=== PATIENT | male | born 1935 | race Caucasian/White ===

== ENCOUNTER 2016-09-20 23:52 | Inpatient (IN) | payer MEDICARE ==
[~2016-09-20] VITALS: Ht 180.3 cm; Wt 95.8 kg
[~2016-09-20 23:52] MED LIST: ASPIRIN325 MG PO; CARDURA1 MG PO; FLOMAX0.4 M1 PO; LIPITOR10 MG PO; MAXIDE1 COMBO PO; PRILOSEC40 MG PO; PROAIR HFA IN; PYRIDIUM200 MG PO; SAW PALMETTO160 MG PO; ULTRAM50 M1 PO
--- NOTE | 2016-09-20 23:54 | NUR ---
AMBULATED TO ROOM 9 WITH STEADY GAIT
[2016-09-21] VITALS (9 sets, daily range): BP systolic 121–155; BP diastolic 55–76
[2016-09-21] MEDS ORDERED: LISINOPRIL10 MG PO (00:07)
--- NOTE | 2016-09-21 00:13 | NUR ---
IVF, IV ANTIEMETIC AND IV PAIN MED GIVEN PER MD ORDER.
[2016-09-21 00:41] LABS: HEMATOCRIT 45.2 % (39.0-50.0); HEMOGLOBIN 15.5 g/dl (14.0-18.0); IMMATURE GRANULOCYTES 0.4 % (0.0-1.0); MEAN CELL VOLUME 89.3 fL CALC (80.0-100.0); MEAN CORPUSCULAR HGB 30.6 pG CALC (26.0-32.0); MEAN CORPUSCULAR HGB CONC 34.3 g/L CALC (32.0-36.0); NEUT# 8.24 thou/uL (1.82-7.42); RED BLOOD COUNT 5.06 mill/uL (4.70-6.10); RED CELL DISTRI WIDTH 13.1 % (11.5-15.5)
[2016-09-21 01:00] LABS: ALBUMIN 5.1 g/dL (3.2-5.0); ALKALINE PHOSPHATASE 63 u/l (38-126); AMYLASE 97 u/l (30-110); ANION GAP 17 (6-22 (CALC)); BILIRUBIN, TOTAL 0.5 mg/dL (0.0-1.4); BUN 25 mg/dL (8-23); BUN/CREATININE RATIO 20 (12-20 (CALC)); CALCIUM 10.2 mg/dL (8.4-10.2); CARBON DIOXIDE 30 mmol/l (22-30); CHLORIDE 98 mmol/l (95-108); CREATININE 1.3 mg/dL (0.7-1.3); GFR 53 ML/MIN (>=60 (CALC)); GFR FOR AFR.AMER. > 60 ML/MIN (>=60 (CALC)); GLUCOSE 127 mg/dL (82-115); LIPASE 248 u/l (23-300); POTASSIUM 4.5 mmol/l (3.5-5.1); SGOT/AST 55 u/l (19-48); SGPT/ALT 67 u/l (11-66); SODIUM 141 mmol/l (137-146); TOTAL PROTEIN 8.8 g/dL (6.3-8.2)
[2016-09-21 01:11] LABS: MYOGLOBIN 89 ng/mL (0 - 121)
--- NOTE | 2016-09-21 01:12 | NUR ---
PATIENT MEDICATED ADDITIONALLY FOR PAIN. ABX HUNG. PATIENT GIVEN WARM BLANKETS.
--- NOTE | 2016-09-21 01:40 | NUR ---
PT. STATES HIS ABD. PAIN IS NOW DECREASED TO A 2 ON A SCALE OF 1-10.
--- NOTE | 2016-09-21 02:44 | NUR ---
PT. RETURNED FROM X-RAY, NO C/O PAIN OR DISCOMFORT OFFERED.
--- NOTE | 2016-09-21 03:32 | NUR ---
IN ROOM TO DISCUSS CLINICAL FINDINGS WITH PT. AND , VERBALIZED UNDERSTANDING.
--- NOTE | 2016-09-21 03:47 | NUR ---
Admission Note Report Given to: CARMEN PEARSON Transported by: Wheelchair X Stretcher Transported with: X Nurse Transporter X Patent IV O2 Client Specialist
--- NOTE | 2016-09-21 03:50 | NUR ---
[place] [facility] [place], NO C/O PAIN OR DISCOMFORT OFFERED, V/S STABLE. IVF INFUSING WELL.
--- NOTE | 2016-09-21 04:00 | NUR ---
PT ARRIVED TO UNIT VIA STRETCHER WITH ER STAFF. AMBULATED TO BED WITH SUPERVISION. DENIES PAIN AT THIS TIME; STATES ANALGESICS GIVEN IN ED WERE EFFECTIVE. AT BEDSIDE. ASSESSMENT COMPLETED. PLAN OF CARE DISCUSSED. PT AND FAMILY ENCOURAGED TO VERBALIZE CONCERNS. STATES UNDERSTANDING. SAFETY MEASURES PUT IN PLACE. CALL LIGHT SYSTEM REVIEWED AND IN REACH.
--- NOTE | 2016-09-21 07:00 | NUR ---
SHIFT CHANGE REPORT FROM CARMEN, PT AWAKE ALERT AND ORIENTED LYING SUPINE IN BED, DENIES PAIN AT THIS TIME, IVF INFUSING, CALL REYES IN REACH, SPOUSE AT BEDSIDE.
--- NOTE | 2016-09-21 12:22 | NUR ---
OR STAFF HERE TO RECEIVE PT AT THIS TIME, SPOUSE AT BEDSIDE AND ACCOMPANING OR STAFF OFF UNIT.
--- NOTE | 2016-09-21 17:58 | NUR ---
PT ARRIVED ON UNIT VIA STRETCHER AND TRANSFERRED TO BED, REPORT RECEIVED FROM WENDIE IN PACU, INCISION X 4 TO ABD WITH TYSHAWN DRAIN IN PLACE WITH BLOODY DRAINAGE, ABD TENDER AND PT C/O SORE PAIN @ 8/10 AT THIS TIME, O2 @ 2L APPLIED, SCD IN PLACE AND VITAL SIGNS BEING MEASURED. SPOUSE AT BEDSIDE, WILL CONTINUE TO MONITOR AND ADDRESS NEEDS.
--- NOTE | 2016-09-21 20:03 | NUR ---
BEDSIDE REPORT RECEIVED FROM JASON SORIA. PT RESTING IN BED WITH AT BEDSIDE. C/O MODERATE ABDOMINAL PAIN. PILLOW GIVEN FOR SPLINTING AND IS AT BEDSIDE. RESPIRATIONS EVEN AND UNLABORED. PLAN OF CARE REVIEWED. ENCOURAGED TO VERBALIZE CONCERNS. STATES UNDERSTANDING. SAFETY MEASURES IN PLACE. CALL LIGHT WITHIN REACH.
--- NOTE | 2016-09-22 00:12 | NUR ---
PT UP TO BATHROOM AT THIS TIME. MILD PAIN TO ABDOMEN; STATES THAT MORPHINE WAS EFFECTIVE FOR PAIN. RESPIRATIONS EVEN AND UNLABORED. AMBULATED TO BATHROOM INDEPENDENTLY WITH SUPERVISION. REMAINS AT BEDSIDE. SCD'S IN PLACE. INSTRUCTED TO NOTIFY NURSE FOR ANY CHANGES IN CONDITION. USING INCENTIVE SPIROMETER WHILE AWAKE. CALL LIGHT WITHIN REACH.
--- NOTE | 2016-09-22 04:11 | NUR ---
PT ASLEEP AT THIS TIME. NO SIGNS OF DISTRESS NOTED. RESPIRATIONS EVEN AND UNLABORED WITH OXYGEN IN PLACE. NO CHANGES IN ASSESSMENT NOTED. AT BEDSIDE. SAFETY MEASURES IN PLACE. CALL LIGHT WITHIN REACH.
[2016-09-22 04:30] VITALS: BP 151/64
--- NOTE | 2016-09-22 04:35 | NUR ---
PT UP TO VOID. DRESSING TO INCISION CONTAINING TYSHAWN DRAIN NOTED TO BE SATURATED WITH BLOOD. SITE CLEANSED AND DRESSING REPLACED. NOW CDI.
--- NOTE | 2016-09-22 07:00 | NUR ---
REPORT RECIEVED FROM MICHEL MORALES; PT RESTING IN BED WITH EYES CLOSED; PT EASILY AROUSED; PT STATES PAIN IS A 3 OUT OF 10; DRESSINGS X5 TO ABD IN PLACE; DRESSING SURROUNDING TYSHAWN DRAIN HAS SEROSANGIUNIOUS DRAINAGE NOTED; TYSHAWN IN PLACE DRAINING DARK BLOODY DRAINAGE; SPOUSE AT BEDSIDE; PT DENIES ANY NEEDS AT THIS TIME; PT ENCOURAGED TO CALL FOR ANY ASSISTANCE NEEDED; CALL LIGHT WITHIN REACH; WILL CONTINUE TO MONITOR
[2016-09-22 07:12] LABS: HEMATOCRIT 38.4 % (39.0-50.0); HEMOGLOBIN 12.9 g/dl (14.0-18.0); IMMATURE GRANULOCYTES 0.6 % (0.0-1.0); MEAN CELL VOLUME 92.1 fL CALC (80.0-100.0); MEAN CORPUSCULAR HGB 30.9 pG CALC (26.0-32.0); MEAN CORPUSCULAR HGB CONC 33.6 g/L CALC (32.0-36.0); NEUT# 14.58 thou/uL (1.82-7.42); RED BLOOD COUNT 4.17 mill/uL (4.70-6.10); RED CELL DISTRI WIDTH 13.5 % (11.5-15.5)
[2016-09-22 07:25] LABS: ANION GAP 15 (6-22 (CALC)); BUN 26 mg/dL (8-23); BUN/CREATININE RATIO 23 (12-20 (CALC)); CARBON DIOXIDE 28 mmol/l (22-30); CHLORIDE 102 mmol/l (95-108); CREATININE 1.2 mg/dL (0.7-1.3); GFR 58 ML/MIN (>=60 (CALC)); GFR FOR AFR.AMER. > 60 ML/MIN (>=60 (CALC)); GLUCOSE 102 mg/dL (82-115); SODIUM 140 mmol/l (137-146)
[2016-09-22 07:29] LABS: POTASSIUM 5.3 mmol/l (3.5-5.1)
[2016-09-22 08:14] VITALS: BP 157/58
--- NOTE | 2016-09-22 12:30 | NUR ---
PT AMB IN HALLS AT THIS TIME WITH STEADY GAIT WITH SPOUSE; PT ENCOURAGED TO CALL FOR ANY ASSISTANCE NEEDED; DRESSING TO RIGHT UPPER ABD CHANGED AND TYSHAWN EMPTIED 40ML OF DARK BLOODY DRAINAGE NOTED; PT DENIES ANY NEED FOR PAIN MEDICATIONS AT THIS TIME; CALL LIGHT WITHIN REACH; WILL CONTINUE TO MONITOR
[2016-09-22 15:31] VITALS: BP 116/50
--- NOTE | 2016-09-22 16:00 | NUR ---
PT RESTING IN BED WITH EYES CLOSED; NO S/S OF DISTRESS NOTED; SPOUSE AT BEDSIDE; DISCUSSED POC INCLUDING ANOTHER NIGHT STAY; PT VERBALIZES UNDERSTANDING AND ENCOURAGED TO AMB AND USE OF IS; CALL LIGHT WITHIN REACH; WILL CONTINUE TO MONITOR
--- NOTE | 2016-09-22 19:44 | NUR ---
OOB TO BATHROOM PROVINDING OWN PARTIAL BATH, AT PT'S SIDE. DENIES PAIN. ENCOURAGED TO USE CALL LIGHT FOR ASSISTANCE. WILL CONTINUE TO MONITOR.
[2016-09-22 20:51] VITALS: BP 159/74
--- NOTE | 2016-09-22 21:45 | NUR ---
MEDICATED WITH MORPHINE 2MG IV FOR C/O ABDOMINAL PAIN 07/09. ABDOMEN IS LARGE BS, ACTIVE. DENIES PASSING FLATUS. CALL LIGHT IN REACH.
--- NOTE | 2016-09-23 00:05 | NUR ---
IV TO LAC LEAKING, DC'D WITH CATH TIP INTACT, NEW IV #22 STARTED TO RW ON 2ND ATTEMPT TOLERATED WELL.
--- NOTE | 2016-09-23 04:00 | NUR ---
OOB TO BATHROOM WITH STEADY GAIT, VOIDING CLEAR YELLOW URINE, BACK TO BED. SCD'S TO BILAT LOWER EXTREMITIES. CALL LIGHT IN REACH.
[2016-09-23 04:53] VITALS: BP 152/73
[2016-09-23 05:54] LABS: HEMATOCRIT 37.5 % (39.0-50.0); HEMOGLOBIN 12.8 g/dl (14.0-18.0); IMMATURE GRANULOCYTES 0.5 % (0.0-1.0); MEAN CELL VOLUME 90.6 fL CALC (80.0-100.0); MEAN CORPUSCULAR HGB 30.9 pG CALC (26.0-32.0); MEAN CORPUSCULAR HGB CONC 34.1 g/L CALC (32.0-36.0); NEUT# 7.54 thou/uL (1.82-7.42); RED BLOOD COUNT 4.14 mill/uL (4.70-6.10); RED CELL DISTRI WIDTH 13.2 % (11.5-15.5)
[2016-09-23 06:10] LABS: ANION GAP 13 (6-22 (CALC)); BUN 22 mg/dL (8-23); BUN/CREATININE RATIO 22 (12-20 (CALC)); CALCIUM 8.9 mg/dL (8.4-10.2); CARBON DIOXIDE 26 mmol/l (22-30); CHLORIDE 102 mmol/l (95-108); GFR > 60 ML/MIN (>=60 (CALC)); GFR FOR AFR.AMER. > 60 ML/MIN (>=60 (CALC)); GLUCOSE 87 mg/dL (82-115); POTASSIUM 4.4 mmol/l (3.5-5.1); SODIUM 137 mmol/l (137-146)
--- NOTE | 2016-09-23 07:00 | NUR ---
REPORT RECIEVED FROM MICHEL ARMIJO; PT SITTING UP IN BED; NO S/S OF DISTRESS NOTED; SPOUSE AT BEDSIDE; PT REPORTS IMPROVED PAIN AND PASSING GAS; PT DENIES ANY NEEDS AT THIS TIME; CALL LIGHT WITHIN REACH; WILL CONTINUE TO MONITOR
[2016-09-23 07:51] VITALS: BP 142/78
--- NOTE | 2016-09-23 12:28 | NUR ---
PT SITTING UP IN BED FOR LUNCH; NO S/S OF DISTRESS NOTED; SPOUSE AT BEDSIDE; TYSHAWN DRAIN EMPTIED AT THIS TIME; 30ML OF SEROSANGIUNOS DRAINAGE NOTED; PT DENIES ANY NEED FOR PAIN MEDICATION AT THIS TIME; CALL LIGHT WITHIN REACH; WILL CONTINUE TO MONITOR
[2016-09-23] MEDS ORDERED: CIPROFLOXACN500 MG PO (13:47)
[2016-09-23] MEDS ORDERED: METRONIDAZOL500 MG PO (13:48)
[2016-09-23] MEDS ORDERED: MIRALAX3350 NF PO (13:48)
[2016-09-23] MEDS ORDERED: LORTAB 5-325 MG1 TAB PO (13:48)
--- NOTE | 2016-09-23 14:41 | NUR ---
Discharge instructions given. Patient verbalizes understanding of same. Discharged in stable condition via Wheelchair to Home with family. All belongings sent with pt.
== END 2016-09-23 14:40 | disposition home or self-care (01) | DRG 419 ==
LOC: ENPENDDIS → ED 23:52 → ED-I 09-21 03:23 → ED 09-21 03:39 → MS2 09-21 03:40
PROVIDERS: Emergency Medicine; Internal Medicine; ADMIT Internal Medicine; ATTEND Internal Medicine
PROC: 0FT44ZZ Resection of Gallbladder, Percutaneous Endoscopic Approach (ICD-10-PCS; principal; 2016-09-21)
PROC: BF101ZZ Fluoroscopy of Bile Ducts using Low Osmolar Contrast (ICD-10-PCS; 2016-09-21)
DX: K80.00 Calculus of gallbladder with acute cholecystitis without obstruction (principal); E87.5 Hyperkalemia; I10 Essential (primary) hypertension; I25.10 Atherosclerotic heart disease of native coronary artery without angina pectoris; E04.9 Nontoxic goiter, unspecified; K21.9 Gastro-esophageal reflux disease without esophagitis; N40.0 Benign prostatic hyperplasia without lower urinary tract symptoms; Z87.891 Personal history of nicotine dependence
CPT/HCPCS: J2710; Q9967

== ENCOUNTER 2017-02-18 14:49 | Emergency (ER) | payer MEDICARE ==
[~2017-02-18] VITALS: Ht 180.3 cm; Wt 96.0 kg
[~2017-02-18 14:49] MED LIST changes: +CIPROFLOXACN500 MG PO; +LISINOPRIL10 MG PO; +LORTAB 5-325 MG1 TAB PO; +METRONIDAZOL500 MG PO; +MIRALAX3350 NF PO
[2017-02-18] MEDS ORDERED: TRAMADOL HYDROC50 MG PO (15:40)
[2017-02-18] MEDS ORDERED: EC-NAPROSYN500 MG PO (15:40)
[2017-02-18 15:55] VITALS: BP 149/74
== END 2017-02-18 15:55 | disposition home or self-care (01) ==
LOC: ED 14:49
DX: S89.92XA Unspecified injury of left lower leg, initial encounter (principal); I25.10 Atherosclerotic heart disease of native coronary artery without angina pectoris; I10 Essential (primary) hypertension; K21.9 Gastro-esophageal reflux disease without esophagitis; E04.9 Nontoxic goiter, unspecified; W18.39XA Other fall on same level, initial encounter; Y93.K1 Activity, walking an animal

== ENCOUNTER 2017-09-02 06:55 | Emergency (ER) | payer MEDICARE ==
[~2017-09-02] VITALS: Ht 180.3 cm; Wt 95.0 kg
[~2017-09-02 06:55] MED LIST changes: +EC-NAPROSYN500 MG PO; +TRAMADOL HYDROC50 MG PO
[2017-09-02 07:30] LABS: HEMATOCRIT 41.8 % (39.0-50.0); HEMOGLOBIN 14.1 g/dl (14.0-18.0); IMMATURE GRANULOCYTES 0.3 % (0.0-1.0); MEAN CELL VOLUME 90.9 fL CALC (80.0-100.0); MEAN CORPUSCULAR HGB 30.7 pG CALC (26.0-32.0); MEAN CORPUSCULAR HGB CONC 33.7 g/L CALC (32.0-36.0); NEUT# 2.66 thou/uL (1.82-7.42); RED BLOOD COUNT 4.6 mill/uL (4.70-6.10); RED CELL DISTRI WIDTH 13.2 % (11.5-15.5)
[2017-09-02 07:58] LABS: ALBUMIN 4.2 g/dL (3.2-5.0); ALKALINE PHOSPHATASE 70 u/l (38-126); ANION GAP 19 (6-22 (CALC)); BILIRUBIN, TOTAL 0.6 mg/dL (0.0-1.4); BUN 28 mg/dL (8-23); BUN/CREATININE RATIO 24 (12-20 (CALC)); CARBON DIOXIDE 26 mmol/l (22-30); CHLORIDE 103 mmol/l (95-108); CREATININE 1.2 mg/dL (0.7-1.3); GFR 58 ML/MIN (>=60 (CALC)); GFR FOR AFR.AMER. > 60 ML/MIN (>=60 (CALC)); POTASSIUM 4.2 mmol/l (3.5-5.1); SGOT/AST 86 u/l (19-48); SGPT/ALT 95 u/l (11-66); SODIUM 144 mmol/l (137-146)
[2017-09-02 08:50] VITALS: BP 120/67
== END 2017-09-02 09:00 | disposition home or self-care (01) ==
LOC: ED 06:55
PROVIDERS: Emergency Medicine
DX: I10 Essential (primary) hypertension (principal)

== ENCOUNTER 2017-09-25 17:19 | Emergency (ER) | payer MEDICARE | END 2017-09-25 17:59 | disposition left against medical advice (07) | LOC: ED 17:19 → LWOBS 17:58 | DX: Z91.19 Patient's noncompliance with other medical treatment and regimen (principal) ==

== ENCOUNTER → 2018-01-02 | Outpatient (REF) | payer MEDICARE | END | disposition home or self-care (01) | LOC: RT 08:34 | PROVIDERS: ATTEND Internal Medicine | DX: R06.2 Wheezing (principal) ==

== ENCOUNTER 2020-04-12 06:30 | Emergency (ER) | payer MEDICARE ==
[~2020-04-12] VITALS: Ht 180.3 cm; Wt 100.0 kg
[2020-04-12 07:54] LABS: HEMATOCRIT 39.1 % (39.0-50.0); HEMOGLOBIN 13.5 g/dl (14.0-18.0); IMMATURE GRANULOCYTES 0.2 % (0.0-5.0); MEAN CELL VOLUME 87.7 fL CALC (80.0-100.0); MEAN CORPUSCULAR HGB 30.3 pG CALC (26.0-32.0); MEAN CORPUSCULAR HGB CONC 34.5 g/dL CAL (32.0-36.0); NEUT# 4.88 thou/uL (1.82-7.42); RED BLOOD COUNT 4.46 mill/uL (4.70-6.10); RED CELL DISTRI WIDTH 12.8 % (11.5-15.5)
[2020-04-12 08:23] LABS: ALBUMIN 4.3 g/dL (3.2-5.0); ALKALINE PHOSPHATASE 61 u/l (38-126); BUN 27 mg/dL (8-23); BUN/CREATININE RATIO 21 (12-20 (CALC)); CARBON DIOXIDE 25 mmol/l (22-30); CHLORIDE 96 mmol/l (95-108); CREATININE 1.3 mg/dL (0.7-1.3); GFR 52 ML/MIN (>=60 (CALC)); GFR FOR AFR.AMER. > 60 ML/MIN (>=60 (CALC)); POTASSIUM 4.4 mmol/l (3.5-5.1); SGOT/AST 44 u/l (19-48); TOTAL PROTEIN 7.3 g/dL (6.3-8.2)
[2020-04-12 08:27] LABS: ANION GAP 12 (6-22 (CALC)); BILIRUBIN, TOTAL 0.8 mg/dL (0.0-1.4); SODIUM 129 mmol/l (137-146)
[2020-04-12] MEDS ORDERED: [UNRECOGNIZED DRUG - OTHER] (08:59)
[2020-04-12] MEDS ORDERED: METOPROL TAR25 MG PO (09:00)
[2020-04-12] MEDS ORDERED: PRILOSEC20 MG/CAP PO (09:00)
[2020-04-12] MEDS ORDERED: MAXZIDE-2537.5 MG/TA PO (09:01)
[2020-04-12 10:01] LABS: URINE BILIRUBIN - DIPSTICK NEGATIVE (NEGATIVE); URINE BLOOD DIPSTICK NEGATIVE (NEGATIVE); URINE COLOR YELLOW; URINE GLUCOSE - DIPSTICK NEGATIVE (NEGATIVE); URINE KETONE NEGATIVE (NEGATIVE); URINE LEUK ESTERASE NEGATIVE (NEGATIVE); URINE NITRITE - DIPSTICK NEGATIVE (Negative); URINE PH 5.5 (4.5-8.0); URINE PROTEIN - DIPSTICK NEGATIVE (NEG-TRACE); URINE SPECIFIC GRAVITY <=1.005; URINE UROBILINOGEN - DIPSTICK 0.2 E.U./dL (0.2)
[2020-04-12] MEDS ORDERED: REGLAN10 MG PO (10:11)
[2020-04-12 10:22] VITALS: BP 143/66
== END 2020-04-12 10:34 | disposition home or self-care (01) ==
LOC: ED 06:30
PROVIDERS: Family Medicine
DX: R10.13 Epigastric pain (principal); I12.9 Hypertensive chronic kidney disease with stage 1 through stage 4 chronic kidney disease, or unspecified chronic kidney disease; N18.30 Chronic kidney disease, stage 3 unspecified
CPT/HCPCS: Q9967

== ENCOUNTER 2020-07-04 | Emergency (ER) | payer MEDICARE ==
[~2020-07-04] MED LIST changes: +MAXZIDE-2537.5 MG/TA PO; +METOPROL TAR25 MG PO; +PRILOSEC20 MG/CAP PO; +REGLAN10 MG PO; +[UNRECOGNIZED DRUG - OTHER]
[2020-07-04] MEDS ORDERED: TAMSULOSIN0.4 MG PO (10:49)
[2020-07-04] MEDS ORDERED: METOPROLOL100 M1 PO (10:49)
[2020-07-04 11:14] LABS: ALBUMIN 4.6 g/dL (3.2-5.0); ALKALINE PHOSPHATASE 68 u/l (38-126); ANION GAP 11 (6-22 (CALC)); BILIRUBIN, TOTAL 0.6 mg/dL (0.0-1.4); BUN 15 mg/dL (8-23); BUN/CREATININE RATIO 14 (12-20 (CALC)); CARBON DIOXIDE 32 mmol/l (22-30); CHLORIDE 98 mmol/l (95-108); CREATININE 1.1 mg/dL (0.7-1.3); GFR > 60 ML/MIN (>=60 (CALC)); GFR FOR AFR.AMER. > 60 ML/MIN (>=60 (CALC)); HEMOGLOBIN 14.7 g/dl (14.0-18.0); IMMATURE GRANULOCYTES 0.3 % (0.0-5.0); MEAN CELL VOLUME 91.7 fL CALC (80.0-100.0); MEAN CORPUSCULAR HGB 29.8 pG CALC (26.0-32.0); MEAN CORPUSCULAR HGB CONC 32.5 g/dL CAL (32.0-36.0); NEUT# 4.4 thou/uL (1.82-7.42); POTASSIUM 3.3 mmol/l (3.5-5.1); RED BLOOD COUNT 4.94 mill/uL (4.70-6.10); RED CELL DISTRI WIDTH 14.8 % (11.5-15.5); SGOT/AST 31 u/l (19-48); SODIUM 138 mmol/l (137-146)
[2020-07-04 11:15] LABS: HEMATOCRIT 45.3 % (39.0-50.0)
[2020-07-04 11:31] LABS: URINE BILIRUBIN - DIPSTICK NEGATIVE (NEGATIVE); URINE BLOOD DIPSTICK NEGATIVE (NEGATIVE); URINE COLOR YELLOW; URINE GLUCOSE - DIPSTICK NEGATIVE (NEGATIVE); URINE KETONE NEGATIVE (NEGATIVE); URINE LEUK ESTERASE NEGATIVE (NEGATIVE); URINE PROTEIN - DIPSTICK TRACE mg/dL (NEG-TRACE); URINE SPECIFIC GRAVITY 1.015; URINE UROBILINOGEN - DIPSTICK 0.2 E.U./dL (0.2)
[2020-07-04 11:33] LABS: URINE NITRITE - DIPSTICK NEGATIVE (Negative)
[2020-07-04 11:57] LABS: TSH, 3RD GENERATION 1.32 uIU/mL (0.47 - 4.68)
== END 2020-07-04 16:11 | disposition home or self-care (01) ==
PROVIDERS: Emergency Medicine
DX: F22 Delusional disorders (principal); J18.1 Lobar pneumonia, unspecified organism; N40.0 Benign prostatic hyperplasia without lower urinary tract symptoms; K57.30 Diverticulosis of large intestine without perforation or abscess without bleeding; E04.9 Nontoxic goiter, unspecified; K44.9 Diaphragmatic hernia without obstruction or gangrene; I12.9 Hypertensive chronic kidney disease with stage 1 through stage 4 chronic kidney disease, or unspecified chronic kidney disease; N18.30 Chronic kidney disease, stage 3 unspecified
CPT/HCPCS: Q9967